=== PATIENT | male | born 1985 | race Caucasian/White ===

== ENCOUNTER 2017-05-11 07:56 | Emergency (ER) | payer MEDICAID ==
[~2017-05-11] VITALS: Ht 160 cm; Wt 70.5 kg
[2017-05-11 08:10] VITALS: BP 146/92
[2017-05-11] MEDS ORDERED: KETOROLAC 60 MG/2 ML VIAL IM ONE (08:35)
[2017-05-11] MEDS ORDERED: LIDOCAINE 1% ***ER ONLY *** 10 MG/ML VIAL INJ ONE (08:35)
[2017-05-11 08:56] LABS: BASOPHILS # (AUTO) 0.2 K/uL (0.00-0.22); EOSINOPHILS # (AUTO) 0.1 K/uL (0-0.4); HEMATOCRIT 48.3 % (36-52); LYMPHOCYTES # (AUTO) 1.6 K/uL (2.0-11.5); LYMPHOCYTES % (AUTO) 26.2 % (20.5-51.1); MEAN CORPUSCULAR HEMOGLOBIN 29 pg (27-31); MEAN CORPUSCULAR HGB CONC 33 g/dL (33-37); MEAN CORPUSCULAR VOLUME 87 fL (80-94); MONOCYTES # (AUTO) 0.4 K/uL (0.8-1.0); MONOCYTES % (AUTO) 6.2 % (1.7-9.3); NEUTROPHILS # (AUTO) 3.7 K/uL (1.8-7.7); NEUTROPHILS % (AUTO) 62.6 % (42.2-75.2); PLATELET COUNT (AUTO) 216 K/uL (140-450); RED BLOOD CELL COUNT(AUTO) 5.58 MIL/uL (4.20-6.10); RED CELL DISTRIBUTION WIDTH 12.8 % (11.6-13.7)
[2017-05-11 09:09] LABS: PROTHROMBIN TIME 10.7 secs (10.8-13.4)
[2017-05-11 09:11] LABS: ALBUMIN 4.1 g/dL (3.4-5.0); CREATININE 1.1 mg/dL (0.7-1.3); TOTAL BILIRUBIN 1.2 mg/dL (0.0-1.0)
[2017-05-11 09:12] LABS: ANION GAP 11.3 (8-16); CARBON DIOXIDE 27.3 mmol/L (21-32); POTASSIUM 3.6 mmol/L (3.5-5.1)
[2017-05-11 10:07] VITALS: BP 128/86
== END 2017-05-11 10:07 | disposition home or self-care (01) ==
LOC: MED 07:56
DX: G44.209 Tension-type headache, unspecified, not intractable (principal); F17.200 Nicotine dependence, unspecified, uncomplicated; F14.90 Cocaine use, unspecified, uncomplicated; R03.0 Elevated blood-pressure reading, without diagnosis of hypertension
CPT/HCPCS: 20552; 36415; 70450; 71010; 80053; 84484; 85025; 85610; 85730; 93005; 96372; 99285; J1885; J2001